=== PATIENT | female | born 1995 | race African-American/Black ===

== ENCOUNTER 2023-11-20 10:00 | Emergency (ER) | payer MEDICAID ==
[~2023-11-20] VITALS: Ht 167.6 cm; Wt 65.0 kg
[2023-11-20 10:07] VITALS: O2SAT 99
[2023-11-20] MEDS ORDERED: IBUP-2028 MT (10:51)
[2023-11-20] MEDS ORDERED: 0.9126SP BOTHNSTRLS (10:51)
[2023-11-20] MEDS ORDERED: SODI88SP7 BOTHNSTRLS (11:56)
[2023-11-20 11:58] VITALS: BP 124/85; PULSE 96; RESP 16; TEMP 98
== END 2023-11-20 12:00 | disposition home or self-care (01) ==
LOC: ER 10:00
DX: B34.9 Viral infection, unspecified (principal)
CPT/HCPCS: 99282

== ENCOUNTER 2024-03-24 10:24 | Emergency (ER) | payer MEDICAID ==
[~2024-03-24] VITALS: Ht 167.6 cm; Wt 62.0 kg
[~2024-03-24 10:24] MED LIST: IBUP-2028 MT; SODI88SP7 BOTHNSTRLS
[2024-03-24 10:36] VITALS: O2SAT 98
[2024-03-24] MEDS ORDERED: OFLO5DRO4 EACH EAR (10:48)
[2024-03-24 11:01] VITALS: BP 135/81; PULSE 99; RESP 18; TEMP 36.72516; O2SAT 98
== END 2024-03-24 11:02 | disposition home or self-care (01) ==
LOC: ER 10:24
DX: H92.03 Otalgia, bilateral (principal); J02.9 Acute pharyngitis, unspecified
CPT/HCPCS: 99283